=== PATIENT | male | born 1950 | race Hispanic/Latino ===

== ENCOUNTER 2020-12-20 09:18 | Outpatient (CLI) | payer MEDICARE | END 2020-12-20 09:19 | disposition home or self-care (01) | LOC: CSHWCC 09:18 | PROVIDERS: ATTEND Nurse Practitioner Family | DX: I87.2 Venous insufficiency (chronic) (peripheral) (principal); E11.621 Type 2 diabetes mellitus with foot ulcer; L97.522 Non-pressure chronic ulcer of other part of left foot with fat layer exposed; L97.422 Non-pressure chronic ulcer of left heel and midfoot with fat layer exposed; I73.9 Peripheral vascular disease, unspecified; E11.22 Type 2 diabetes mellitus with diabetic chronic kidney disease; I12.9 Hypertensive chronic kidney disease with stage 1 through stage 4 chronic kidney disease, or unspecified chronic kidney disease; N18.30 Chronic kidney disease, stage 3 unspecified; E11.40 Type 2 diabetes mellitus with diabetic neuropathy, unspecified; E11.65 Type 2 diabetes mellitus with hyperglycemia; E11.69 Type 2 diabetes mellitus with other specified complication; M86.9 Osteomyelitis, unspecified; E78.2 Mixed hyperlipidemia; M1A.9XX0 Chronic gout, unspecified, without tophus (tophi); N25.81 Secondary hyperparathyroidism of renal origin; R29.6 Repeated falls; E66.01 Morbid (severe) obesity due to excess calories; Z79.4 Long term (current) use of insulin; Z86.718 Personal history of other venous thrombosis and embolism; Z89.429 Acquired absence of other toe(s), unspecified side ==

== ENCOUNTER 2021-01-10 08:49 | Outpatient (CLI) | payer MEDICARE | END 2021-01-10 08:50 | disposition home or self-care (01) | LOC: CSHWCC 08:49 | PROVIDERS: ATTEND Nurse Practitioner Family | DX: I87.2 Venous insufficiency (chronic) (peripheral) (principal); E11.621 Type 2 diabetes mellitus with foot ulcer; L97.422 Non-pressure chronic ulcer of left heel and midfoot with fat layer exposed; L97.512 Non-pressure chronic ulcer of other part of right foot with fat layer exposed; L97.522 Non-pressure chronic ulcer of other part of left foot with fat layer exposed; I73.9 Peripheral vascular disease, unspecified; E11.69 Type 2 diabetes mellitus with other specified complication; M86.9 Osteomyelitis, unspecified; E11.22 Type 2 diabetes mellitus with diabetic chronic kidney disease; I12.9 Hypertensive chronic kidney disease with stage 1 through stage 4 chronic kidney disease, or unspecified chronic kidney disease; N18.30 Chronic kidney disease, stage 3 unspecified; E11.40 Type 2 diabetes mellitus with diabetic neuropathy, unspecified; E11.65 Type 2 diabetes mellitus with hyperglycemia; E78.2 Mixed hyperlipidemia; N25.81 Secondary hyperparathyroidism of renal origin; M1A.9XX0 Chronic gout, unspecified, without tophus (tophi); R29.6 Repeated falls; E66.01 Morbid (severe) obesity due to excess calories; Z79.4 Long term (current) use of insulin; Z89.429 Acquired absence of other toe(s), unspecified side; Z86.718 Personal history of other venous thrombosis and embolism | CPT/HCPCS: 87070; 87205 ==

== ENCOUNTER 2021-01-24 10:04 | Outpatient (CLI) | payer MEDICARE | END 2021-01-24 10:05 | disposition home or self-care (01) | LOC: CSHWCC 10:04 | PROVIDERS: ATTEND Nurse Practitioner Family | DX: E11.621 Type 2 diabetes mellitus with foot ulcer (principal); L97.522 Non-pressure chronic ulcer of other part of left foot with fat layer exposed; L97.509 Non-pressure chronic ulcer of other part of unspecified foot with unspecified severity; E11.65 Type 2 diabetes mellitus with hyperglycemia; E66.01 Morbid (severe) obesity due to excess calories; E78.2 Mixed hyperlipidemia; I73.9 Peripheral vascular disease, unspecified; I87.2 Venous insufficiency (chronic) (peripheral); M86.9 Osteomyelitis, unspecified; N25.81 Secondary hyperparathyroidism of renal origin; R29.6 Repeated falls; E11.40 Type 2 diabetes mellitus with diabetic neuropathy, unspecified; I12.9 Hypertensive chronic kidney disease with stage 1 through stage 4 chronic kidney disease, or unspecified chronic kidney disease; E11.22 Type 2 diabetes mellitus with diabetic chronic kidney disease; N18.30 Chronic kidney disease, stage 3 unspecified; Z79.4 Long term (current) use of insulin; Z86.718 Personal history of other venous thrombosis and embolism; Z89.429 Acquired absence of other toe(s), unspecified side ==

== ENCOUNTER 2021-02-26 12:41 | Outpatient (CLI) | payer MEDICARE, OTHER | END 2021-02-26 12:42 | disposition home or self-care (01) | LOC: CSHWCC 12:41 | PROVIDERS: ATTEND Nurse Practitioner Family | DX: I87.2 Venous insufficiency (chronic) (peripheral) (principal); E11.621 Type 2 diabetes mellitus with foot ulcer; I12.9 Hypertensive chronic kidney disease with stage 1 through stage 4 chronic kidney disease, or unspecified chronic kidney disease; E11.22 Type 2 diabetes mellitus with diabetic chronic kidney disease; E11.40 Type 2 diabetes mellitus with diabetic neuropathy, unspecified; N18.30 Chronic kidney disease, stage 3 unspecified; L97.522 Non-pressure chronic ulcer of other part of left foot with fat layer exposed; L97.509 Non-pressure chronic ulcer of other part of unspecified foot with unspecified severity; E11.65 Type 2 diabetes mellitus with hyperglycemia; E11.8 Type 2 diabetes mellitus with unspecified complications; E66.01 Morbid (severe) obesity due to excess calories; E78.2 Mixed hyperlipidemia; I73.9 Peripheral vascular disease, unspecified; M1A.9XX0 Chronic gout, unspecified, without tophus (tophi); M86.9 Osteomyelitis, unspecified; N25.81 Secondary hyperparathyroidism of renal origin; R29.6 Repeated falls; Z79.4 Long term (current) use of insulin; Z86.718 Personal history of other venous thrombosis and embolism; Z89.429 Acquired absence of other toe(s), unspecified side | CPT/HCPCS: 99213; G0463 ==

== ENCOUNTER 2021-03-19 08:54 | Outpatient (CLI) | payer MEDICARE, OTHER | END 2021-03-19 08:55 | disposition home or self-care (01) | LOC: CSHWCC 08:54 | PROVIDERS: ATTEND Nurse Practitioner Family | DX: I87.2 Venous insufficiency (chronic) (peripheral) (principal); E11.621 Type 2 diabetes mellitus with foot ulcer; L97.522 Non-pressure chronic ulcer of other part of left foot with fat layer exposed; E11.22 Type 2 diabetes mellitus with diabetic chronic kidney disease; I12.9 Hypertensive chronic kidney disease with stage 1 through stage 4 chronic kidney disease, or unspecified chronic kidney disease; N18.30 Chronic kidney disease, stage 3 unspecified; E11.65 Type 2 diabetes mellitus with hyperglycemia; E11.40 Type 2 diabetes mellitus with diabetic neuropathy, unspecified; I73.9 Peripheral vascular disease, unspecified; E11.8 Type 2 diabetes mellitus with unspecified complications; E11.69 Type 2 diabetes mellitus with other specified complication; M86.9 Osteomyelitis, unspecified; E78.2 Mixed hyperlipidemia; N25.81 Secondary hyperparathyroidism of renal origin; R29.6 Repeated falls; M1A.9XX0 Chronic gout, unspecified, without tophus (tophi); E66.01 Morbid (severe) obesity due to excess calories; Z79.4 Long term (current) use of insulin; Z89.429 Acquired absence of other toe(s), unspecified side; Z86.718 Personal history of other venous thrombosis and embolism ==

== ENCOUNTER 2022-02-07 08:06 | Outpatient (CLI) | payer OTHER | END 2022-02-07 08:07 | disposition home or self-care (01) | LOC: CSHWCC 08:06 | PROVIDERS: ATTEND Nurse Practitioner Family | DX: L89.322 Pressure ulcer of left buttock, stage 2 (principal); L89.620 Pressure ulcer of left heel, unstageable; L97.522 Non-pressure chronic ulcer of other part of left foot with fat layer exposed | CPT/HCPCS: 99213; G0463 ==

== ENCOUNTER 2022-03-10 09:43 | Outpatient (CLI) | payer MEDICARE, OTHER | END 2022-03-10 09:44 | disposition home or self-care (01) | LOC: CSHWCC 09:43 | PROVIDERS: ATTEND Nurse Practitioner Family | DX: L89.322 Pressure ulcer of left buttock, stage 2 (principal); L89.620 Pressure ulcer of left heel, unstageable | CPT/HCPCS: 99213; G0463 ==

== ENCOUNTER 2022-03-24 09:45 | Outpatient (CLI) | payer MEDICARE | END 2022-03-24 09:46 | disposition home or self-care (01) | LOC: CSHWCC 09:45 | PROVIDERS: ATTEND Nurse Practitioner Family | DX: L89.620 Pressure ulcer of left heel, unstageable (principal); L89.322 Pressure ulcer of left buttock, stage 2 | CPT/HCPCS: 11042 ==